=== PATIENT | male | born 1990 | race African-American/Black ===

== ENCOUNTER 2018-06-17 12:19 | Emergency (ER) | payer OTHER ==
[2018-06-17 12:44] VITALS: BP 147/72
--- NOTE | 2018-06-17 12:55 | ER Document Report ---
ED Medical Screen (RME) - General Chief Complaint: Laceration Stated Complaint: WRIST LACERATION Time Seen by Provider: 06/17/18 12:53 Notes: 27 years old male sustained a deep laceration over the left wrist. To arrival at work. Tetanus is up-to-date TRAVEL OUTSIDE OF THE [place] IN LAST 30 DAYS: No - Related Data Allergies/Adverse Reactions: No Known Allergies Allergy (Verified 06/17/18 12:22) Past Medical History - Social History Chew tobacco use (# tins/day): No Frequency of alcohol use: None Drug Abuse: None Renal/ Medical History: Denies: Hx Peritoneal Dialysis - Immunizations Hx Diphtheria, Pertussis, Tetanus Vaccination: Yes Physical Exam - Vital signs Vitals: Temp Pulse Resp BP Pulse Ox 98.8 F 63 16 147/72 H 100 06/17/18 12:43 06/17/18 12:43 06/17/18 12:43 06/17/18 12:43 06/17/18 12:43 Course - Vital Signs Vital signs: Temp Pulse Resp BP Pulse Ox 98.8 F 63 16 147/72 H 100 06/17/18 12:43 06/17/18 12:43 06/17/18 12:43 06/17/18 12:43 06/17/18 12:43
[2018-06-17] MEDS ORDERED: LIDOCAINE 1%/EPINEPHRINE INJ 20 ML VIAL INJ ONE (14:38)
[2018-06-17] MEDS ORDERED: HYDROCODONE/ACETAMINOPHEN 5-325 MG TABLET PO ONE (15:09)
--- NOTE | 2018-06-17 15:30 | ER Document Report ---
HPI - HPI Patient complains to provider of: laceration Time Seen by Provider: 06/17/18 12:53 Pain Level: 3 Context: Patient is a 27-year-old male presents to the emergency department for a laceration to the distal aspect of his left forearm. Patient states he was trying to open a box with a juke box servicer knife in his hand slipped lacerating his left distal wrist. Patient states his last tetanus immunization was 1 month ago. Patient denies any other injuries. Past medical history: None Medications: None Allergies: None Patient is up-to-date on vaccines. - DERM Skin Color: Normal Past Medical History - General Information source: Patient - Social History Smoking Status: Current Every Day Smoker Chew tobacco use (# tins/day): No Frequency of alcohol use: None Drug Abuse: None Family History: Reviewed & Not Pertinent Patient has suicidal ideation: No Patient has homicidal ideation: No Renal/ Medical History: Denies: Hx Peritoneal Dialysis - Immunizations Hx Diphtheria, Pertussis, Tetanus Vaccination: Yes Vertical Provider Document - CONSTITUTIONAL Agree With Documented VS: Yes Notes: GENERAL: Alert, interacts well. No acute distress. HEAD: Normocephalic, atraumatic. EYES: Pupils equal, round, and reactive to light. Extraocular movements intact. ENT: Oral mucosa moist, tongue midline. NECK: Full range of motion. Supple. Trachea midline. LUNGS: Clear to auscultation bilaterally, no wheezes, rales, or rhonchi. No respiratory distress. HEART: Regular rate and rhythm. No murmur ABDOMEN: Soft, non-tender. Non-distended. Bowel sounds present in all 4 quadrants. EXTREMITIES: Moves all 4 extremities spontaneously. No edema, normal radial and dorsalis pedis pulses bilaterally. No cyanosis. BACK: no cervical, thoracic, lumbar midline tenderness. No saddle anesthesia, normal distal neurovascular exam. NEUROLOGICAL: Alert and oriented x3. Normal speech. cranial nerves II through XII grossly intact PSYCH: Normal affect, normal mood. SKIN: Warm, dry, normal turgor. 2 cm vertical laceration to the medial aspect of the distal left forearm. Bleeding controlled. - INFECTION CONTROL TRAVEL OUTSIDE OF THE [place] IN LAST 30 DAYS: No Course - Re-evaluation Re-evalutation: 06/17/18 15:27 Suture was repaired, see procedure note. Patient tolerated procedure well. Pat ient is up-to-date on his tetanus so that is not needed at this time. Patient stable for discharge. - Vital Signs Vital signs: Temp Pulse Resp BP Pulse Ox 98.8 F 63 16 147/72 H 100 06/17/18 12:43 06/17/18 12:43 06/17/18 12:43 06/17/18 12:43 06/17/18 12:43 Procedures - Laceration/Wound Repair Forearm Wound length (cm): 2 Wound's Depth, Shape: Superficial Laceration pre-procedure: Sterile PPE donned, Betadine prep applied, Sterile drapes applied, Shur-Clens applied Anesthetic type: 1% Lidocaine w/epi Volume Anesthetic (mLs): 5 Wound explored: Clean Irrigated w/ Saline (mLs): 200 Wound Debrided: Minimal Wound Repaired With: Sutures Suture Size/Type: 4:0, Ethilon Number of Sutures: 3 Post-procedure wound care: Sterile dressing applied Post-procedure NV exam normal: Yes Complications: No Discharge - Discharge Clinical Impression: Laceration Condition: Stable Disposition: HOME, SELF-CARE Instructions: Laceration Care ([facility]), Antibiotic Ointment Protection ([facility]) Additional Instructions: As we discussed you have been seen and treated in the emergency department for a laceration. The sutures do need to be removed in the next 10-14 days. Please follow-up with your primary care provider or return to the emergency room for suture removal. Please return to the emergency room sooner if the wound shows any signs of infection.
== END 2018-06-17 15:42 | disposition home or self-care (01) ==
LOC: ER 12:19
DX: S51.812A Laceration without foreign body of left forearm, initial encounter (principal); W26.0XXA Contact with knife, initial encounter; Y93.89 Activity, other specified; F17.200 Nicotine dependence, unspecified, uncomplicated
CPT/HCPCS: 12001; 99282; J3490